=== PATIENT | female | born 1930 | race Caucasian/White ===

== ENCOUNTER 2017-12-21 14:29 | Emergency (ER) | payer MEDICARE, BC ==
[2017-12-21 15:02] VITALS: BP 140/71
[2017-12-21] MEDS ORDERED: methylPREDNISolone Sodium Succinate 40 MG/1 ML SDV IVPUSH ONE (15:26)
[2017-12-21] MEDS ORDERED: Sodium Chloride 0.9% 1,000 ML IV SCH (15:30)
--- NOTE | 2017-12-21 15:33 | EDM.PDOC ---
ED HPI GENERAL MEDICAL PROBLEM - General Chief Complaint: ENT Problem Stated Complaint: SORE THROA AND EAR ACHE Time Seen by Provider: 12/21/17 15:15 Source of Information: Reports: Patient, Family History Limitations: Reports: No Limitations - History of Present Illness INITIAL COMMENTS - FREE TEXT/NARRATIVE: 87-year-old female who was had a sore throat for the past week and a half, has been in the clinic twice and has received 2 different antibiotics. She did get tested for strep throat on her second visit which was negative. She feels she can't eat because she gets nauseous real fast, feels very weak and is having trouble taking care of her . No fevers or chills, no shortness of breath , denies any rashes or joint pains. She has some mild diarrhea. She is able to take fluids but is concerned for hydration. Onset: Gradual Duration: Week(s): (Up to 2 weeks of symptoms) Associated Symptoms: Reports: Headaches (Some pain in the right throat radiating up to the right ear and right head, especially with swallowing), Malaise, Weakness. Denies: Cough, Fever/Chills, Nausea/Vomiting, Shortness of Breath throat Pain Score (Numeric/FACES): 5 - Related Data Allergies Allergy/AdvReac Type Severity Reaction Status Date / Time Penicillins Allergy Hives Verified 12/21/17 15:03 Home Meds: Home Meds Aspirin 325 mg PO DAILY 11/01/15 [History] Calcium Carbonate/Vitamin D3 [Calcium 600 + Vit D 200] 1 each PO DAILY 11/01/15 [History] Nitroglycerin [Nitrostat] 0.4 mg SL ASDIRECTED PRN 11/01/15 [History] Magnesium Oxide [Magnesium] 100 mg PO DAILY 11/02/15 [History] Acetaminophen [Tylenol] 650 mg PO BID 11/26/17 [History] Gabapentin [Neurontin] 100 mg PO BEDTIME 11/26/17 [History] Latanoprost [Xalatan] 1 drop EYEBOTH BEDTIME 11/26/17 [History] Multivitamin with Minerals [Multiple Vitamin] 1 tab PO DAILY 11/26/17 [History] Ubidecarenone [Co Q-10] 100 mg PO DAILY 11/26/17 [History] Past Medical History HEENT History: Reports: Glaucoma Cardiovascular History: Reports: Arrhythmia Musculoskeletal History: Reports: Osteoarthritis - Past Surgical History GI Surgical History: Reports: Appendectomy, Cholecystectomy Female Surgical History: Reports: Hysterectomy Musculoskeletal Surgical History: Reports: None Social & Family History - Tobacco Use Smoking Status *Q: Never Smoker - Recreational Drug Use Recreational Drug Use: No ED ROS GENERAL - Review of Systems Review Of Systems: See Below Constitutional: Reports: Malaise, Weakness, Decreased Appetite. Denies: Fever, Chills HEENT: Reports: Ear Pain, Throat Pain Respiratory: Denies: Shortness of Breath, Cough (On the right side) Cardiovascular: Denies: Chest Pain GI/Abdominal: Denies: Nausea, Vomiting Skin: Reports: No Symptoms Neurological: Reports: No Symptoms ED EXAM, GENERAL - Physical Exam Exam: See Below Exam Limited By: No Limitations General Appearance: Alert, No Apparent Distress Eye Exam: Bilateral Eye: Normal Inspection Ears: Normal TMs Throat/Mouth: Other (Some moderate pharyngeal erythema but no exudate or asymmetry) Head: Atraumatic Neck: No: Lymphadenopathy (R), Lymphadenopathy (L) Respiratory/Chest: No Respiratory Distress, Lungs Clear GI/Abdominal: Non-Tender Extremities: No: Pedal Edema Neurological: Alert, Oriented Skin Exam: Warm, Dry Course - Vital Signs Last Recorded V/S: Last Vital Signs Temp 97.4 F 12/21/17 15:06 Pulse 74 12/21/17 15:06 Resp 16 12/21/17 15:06 BP 140/71 12/21/17 15:06 Pulse Ox 96 12/21/17 15:06 - Orders/Labs/Meds Labs: Laboratory Tests 12/21/17 12/21/17 Range/Units 15:37 15:37 WBC 8.8 (4.5-11.0) K/uL RBC 4.50 (3.30-5.50) M/uL Hgb 12.7 (12.0-15.0) g/dL Hct 39.5 (36.0-48.0) % MCV 88 (80-98) fL MCH 28 (27-31) pg MCHC 32 (32-36) % Plt Count 222 (150-400) K/uL Neut % (Auto) 76 H (36-66) % Lymph % (Auto) 13 L (24-44) % Young % (Auto) 9 H (2-6) % Eos % (Auto) 2 (2-4) % Baso % (Auto) 0 (0-1) % Sodium 139 L (140-148) mmol/L Potassium 3.3 L (3.6-5.2) mmol/L Chloride 101 (100-108) mmol/L Carbon Dioxide 24 (21-32) mmol/L Anion Gap 17.3 H (5.0-14.0) mmol/L BUN 10 (7-18) mg/dL Creatinine 0.7 (0.6-1.0) mg/dL Est Cr Clr Drug Dosing 46.30 mL/min Estimated GFR (MDRD) > 60 (>60) Glucose 85 (74-106) mg/dL Calcium 9.3 (8.5-10.1) mg/dL Meds: Medications Discontinued Medications Generic Name Dose Route Start Last Admin Trade Name Freq PRN Reason Stop Dose Admin Sodium Chloride 1,000 mls @ 1,000 mls/hr 12/21/17 15:30 12/21/17 15:50 Normal Saline IV 1,000 mls/hr ASDIRECTED JORDEN Administration Methylprednisolone Sodium Succinate 40 mg 12/21/17 15:26 12/21/17 15:52 Solu-Medrol IVPUSH 12/21/17 15:27 40 mg ONETIME ONE Administration - Re-Assessments/Exams Free Text/Narrative Re-Assessment/Exam: 12/21/17 15:30 CBC, BMP was obtained and the patient was given 1 L of normal saline along with 40 mg of IV Solu-Medrol. I believe she's got some lingering viral pharyngitis with eustachian tube dysfunction on the right side and likely getting side effects from the medications. 12/21/17 16:51 CBC was normal, BMP also reassuring. Patient is going to stop the antibiotics for the next 48-72 hours and increase activity as tolerated. Recheck in 2-3 days if not improving satisfactorily. Departure - Departure Time of Disposition: 17:09 Disposition: Home, Self-Care 01 Condition: Good Clinical Impression: Pharyngitis Qualifiers: Pharyngitis/tonsillitis etiology: unspecified etiology Qualified Code(s): J02.9 - Acute pharyngitis, unspecified Eustachian tube dysfunction Qualifiers: Laterality: right Qualified Code(s): H69.81 - Other specified disorders of Eustachian tube, right ear - Discharge Information Instructions: Eustachian Tube Dysfunction Referrals: PCP,None [Primary Care Provider] - Forms: ED Department Discharge Care Plan Goals: Stop antibiotics for the next 2-3 days and see if you don't feel better. If you feel better, just let the cold run its course. If not improved in 2-3 days, consider rechecking at the clinic. Return to the emergency room at any time if worsening or concerns.
== END 2017-12-21 17:09 | disposition home or self-care (01) ==
LOC: JP.ED 14:29
DX: J02.9 Acute pharyngitis, unspecified (principal); H69.81 Other specified disorders of Eustachian tube, right ear; Z79.82 Long term (current) use of aspirin; Z79.899 Other long term (current) drug therapy; Z88.0 Allergy status to penicillin
CPT/HCPCS: 36415; 80048; 85025; 96372; 99283; J2920; J7030